=== PATIENT | male | born 1995 | race Caucasian/White ===

== ENCOUNTER 2020-04-06 11:41 | Emergency (ER) | payer OTHER, BC ==
--- NOTE | 2020-04-06 12:19 | EDM.PDOC ---
ED HPI GENERAL MEDICAL PROBLEM - General Chief Complaint: Upper Extremity Injury/Pain Stated Complaint: crush arm injury Time Seen by Provider: 04/06/20 12:08 Source of Information: Reports: Patient History Limitations: Reports: No Limitations - History of Present Illness INITIAL COMMENTS - FREE TEXT/NARRATIVE: Patient presents to ER with complaints of pain to his left arm/wrist. Got his arm caught between a tire of a sprayer and a chemical tote. He states his fingers are cold/tingling and it hurts to move his wrist. Has abrasion to inner wrist. Rates pain at a 7/10 Onset: Today, Sudden Duration: Minutes:, Constant Location: Reports: Upper Extremity, Left Quality: Reports: Throbbing Severity: Moderate Improves with: Reports: Rest Worsens with: Reports: Movement Context: Reports: Trauma Associated Symptoms: Reports: No Other Symptoms LEFT WRIST/FOREARM Pain Score (Numeric/FACES): 7 - Related Data Allergies Allergy/AdvReac Type Severity Reaction Status Date / Time amoxicillin [From Augmentin] Allergy Diarrhea Verified 04/06/20 11:50 clavulanic acid Allergy Diarrhea Verified 04/06/20 11:50 [From Augmentin] Home Meds: Home Meds Amphetamine/Dextroamphetamine [Adderall XR] 25 mg PO DAILY 04/06/20 [History] Past Medical History Psychiatric History: Reports: ADHD - Past Surgical History HEENT Surgical History: Reports: Oral Surgery Social & Family History - Tobacco Use Smoking Status *Q: Unknown Ever Smoked Review of Systems - Review of Systems Review Of Systems: See Below Musculoskeletal: Reports: Arm Pain Skin: Reports: Wound Neurological: Reports: No Symptoms ED EXAM, GENERAL - Physical Exam Exam: See Below Exam Limited By: No Limitations General Appearance: Alert, WD/WN, No Apparent Distress Peripheral Pulses: 2+: Radial (L), Radial (R) Extremities: Normal Inspection, Normal Capillary Refill, Arm Pain, Limited Range of Motion (patient is tender to palpation to the left inner wrist. has small abrasion, mild bruising. No swelling noted. Has pain with rotation of his wrist, able to flex and extend without difficulty. No pain with range of motion of hand or elbow.). No: Joint Swelling Neurological: Alert, Oriented Skin Exam: Warm, Dry Course - Vital Signs Last Recorded V/S: Last Vital Signs Temp 96.8 F L 04/06/20 11:45 Pulse 88 04/06/20 11:45 Resp 18 04/06/20 11:45 BP 112/75 04/06/20 11:45 Pulse Ox 100 04/06/20 11:45 - Orders/Labs/Meds Orders: Active Orders 24 hr Category Date Time Status Forearm 2V Lt [CR] Stat Exams 04/06/20 11:52 Taken Wrist Comp Min 3V Lt [CR] Stat Exams 04/06/20 11:51 Taken - Re-Assessments/Exams Free Text/Narrative Re-Assessment/Exam: 04/06/20 12:10 Xrays are negative Departure - Departure Time of Disposition: 12:17 Disposition: Home, Self-Care 01 Condition: Good Clinical Impression: Contusion of arm, left Qualifiers: Encounter type: initial encounter Qualified Code(s): S40.022A - Contusion of left upper arm, initial encounter - Discharge Information *PRESCRIPTION DRUG MONITORING PROGRAM REVIEWED*: No *COPY OF PRESCRIPTION DRUG MONITORING REPORT IN PATIENT [facility]: No Instructions: Contusion, [id number] Forms: ED Department Discharge Additional Instructions: 1. Rest arm today 2. Elevate 3. Ice frequently, 20 minutes every 2 hours 4. Ibuprofen 400-600 mg for pain 5. Return in next 5-7 days if pain persists. Return immediately if swells and pain is out of proportion to the injury and/or becomes pale Sepsis Event Note (ED) - Evaluation Sepsis Screening Result: No Definite Risk - Focused Exam Vital Signs: Vital Signs Temp Pulse Resp BP Pulse Ox 04/06/20 11:45 96.8 F L 88 18 112/75 100 - My Orders Last 24 Hours: My Active Orders 04/06/20 11:51 Wrist Comp Min 3V Lt [CR] Stat 04/06/20 11:52 Forearm 2V Lt [CR] Stat - Assessment/Plan Last 24 Hours: My Active Orders 04/06/20 11:51 Wrist Comp Min 3V Lt [CR] Stat 04/06/20 11:52 Forearm 2V Lt [CR] Stat
== END 2020-04-06 12:26 | disposition home or self-care (01) ==
LOC: CC.ED 11:41
DX: S40.022A Contusion of left upper arm, initial encounter (principal); S60.212A Contusion of left wrist, initial encounter; F90.9 Attention-deficit hyperactivity disorder, unspecified type; Z79.899 Other long term (current) drug therapy; Z88.1 Allergy status to other antibiotic agents; W23.0XXA Caught, crushed, jammed, or pinched between moving objects, initial encounter
CPT/HCPCS: 73090-LT; 73110-LT; 99283